=== PATIENT | female | born 1945 | race Caucasian/White ===

== ENCOUNTER → 2016-09-23 | Outpatient (CLI) | payer MEDICARE, MEDICAID ==
[~2016-09-23] MED LIST: AMLODIPINE10 M2 PO; ATENOLOL50 MG PO; BENAZEPRIL HYDR20 MG OR; CEFDINIR300 M1 PO; D-10001 TAB PO; FLORASTOR250 MG PO; GABAPENTIN100 M1 PO; METFORMIN850 MG PO; RELION NOVOLIN10 ML SC; TRAMADOL 50MG T50 MG PO; ZITHROMAX Z PA250 MG PO
[2016-09-25 09:37] LABS: Creatinine, Urine 15.8 mg/dL (Not Estab.); Microalbumin, Urine 5.1 ug/mL (Not Estab.)
== END ==
LOC: LAB 13:56
PROVIDERS: Emergency Medicine
DX: E11.9 Type 2 diabetes mellitus without complications (principal)

== ENCOUNTER → 2017-05-25 | Outpatient (CLI) | payer MEDICARE, MEDICAID ==
[2017-05-25 08:02] LABS: HEMOGLOBIN 11.1 g/dL (12.2-16.2); LYMPH # 1.3 K/mm3 (0.7-4.5); LYMPH % 34.5 % (10-50.0)
[2017-05-25 09:58] LABS: BUN 13 mg/dL (7-18); GFR (ESTIMATED) 99 ML/MIN (59-)
== END ==
LOC: LAB 07:43
PROVIDERS: Nurse Practitioner Acute Care
DX: B18.2 Chronic viral hepatitis C (principal)

== ENCOUNTER → 2017-06-22 | Outpatient (CLI) | payer MEDICARE, MEDICAID ==
[2017-06-22 10:06] LABS: HEMOGLOBIN 10.6 g/dL (12.2-16.2); LYMPH # 1.3 K/mm3 (0.7-4.5); LYMPH % 32.3 % (10-50.0)
[2017-06-22 11:26] LABS: BUN 9 mg/dL (7-18)
[2017-06-22 11:28] LABS: GFR (ESTIMATED) 82 ML/MIN (59-)
== END ==
LOC: LAB 09:38
PROVIDERS: Nurse Practitioner Acute Care
DX: B18.2 Chronic viral hepatitis C (principal)